=== PATIENT | female | born 1965 | race American Indian/Alaskan Native ===

== ENCOUNTER 2016-11-10 08:54 | Outpatient (CLI) | payer BC ==
--- NOTE | 2016-11-10 10:22 | Mammography Report ---
Screening mammogram: The patient had this exam on the above date . It was indicated to us that previous films should be available that would be helpful in providing optimal evaluation with regards to the current study. A final report will be issued, pending receipt of the prior study. CAD was not captured. BI-RADS CATEGORY: 0 = Needs additional imaging evaluation ACR BI-RADS MAMMOGRAPHIC CODES: 0 = Needs additional imaging evaluation; 1 = Negative; 2 = Benign; 3 = Probably benign; 4 = Suspicious; 5 = Malignant; 6 = Known biopsy-proven malignancy COMMENT: 1. Dense breast tissue, i.e., adenosis, fibrocystic changes, etc., may obscure an underlying neoplasm. 2. Approximately 10% of cancers are not detected with mammography. 3. A negative mammography report should not delay biopsy if a clinically suspicious mass is present.
== END 2016-11-10 08:55 | disposition home or self-care (01) ==
LOC: MAMMO 08:54
DX: Z12.31 Encounter for screening mammogram for malignant neoplasm of breast (principal)
CPT/HCPCS: 77067; G0202

== ENCOUNTER 2017-11-22 09:25 | Outpatient (CLI) | payer BC ==
--- NOTE | 2017-11-23 08:52 | Mammography Report ---
BILATERAL DIGITAL SCREENING MAMMOGRAM with CAD and DIGITAL BREAST TOMOSYNTHESIS (DBT) 11/22/17 CLINICAL: Routine screening. COMPARISON:11/10/16 FINDINGS: The breasts are mostly fatty with a few scattered bilateral fibroglandular densities.Bilateral low-density circumscribed nodules, cysts or lymph nodes are not significantly changed compared to the prior exam. No new mass, architectural distortion or suspicious calcifications. IMPRESSION: No mammographic evidence of malignancy. BI-RADS CATEGORY: 2 - - Benign RECOMMENDATION: Routine mammographic screening in one year. We will request comparison studies from [facility]. COMMENT: Patient follow-up letters are generated by our [employer] application.
== END 2017-11-22 09:26 | disposition home or self-care (01) ==
LOC: US 09:25
PROVIDERS: ATTEND Physician Assistant Medical
DX: Z12.31 Encounter for screening mammogram for malignant neoplasm of breast (principal)
CPT/HCPCS: 77063; 77067

== ENCOUNTER 2019-12-05 09:51 | Emergency (ER) | payer BC ==
[2019-12-05] MEDS ORDERED: SODIUM CHLORIDE 0.9% 1000 ML IV SOLN IV ONE (10:34)
[2019-12-05] MEDS ORDERED: SODIUM CHLORIDE 0.9% 1000 ML 1,000 ML ONE (10:36)
[2019-12-05 10:59] LABS: Basophils % (Auto) 0.5 % (0.0-1.8); Eosinophils % (Auto) 0.5 % (0.0-4.3); Hematocrit 39.2 % (30.3-42.9); Hemoglobin 13.1 gm/dl (10.1-14.3); Lymphocytes # (Auto) 0.5 K/mm3 (1.2-5.4); Lymphocytes % (Auto) 10.5 % (13.4-35.0); Mean Corpuscular HGB Conc 33 % (30-34); Mean Corpuscular Volume 86 fl (79-97); Monocytes # (Auto) 0.6 K/mm3 (0.0-0.8); Monocytes % (Auto) 13.9 % (0.0-7.3); Platelet Count 218 K/mm3 (140-440); Red Blood Count 4.58 M/mm3 (3.65-5.03); Red Cell Distribution Width 15.1 % (13.2-15.2)
[2019-12-05 11:11] LABS: Bilirubin,Urine NEG (Negative); Blood,Urine NEG (Negative); Color,Urine Yellow (Yellow); Protein,Urine <15 mg/dL mg/dL (Negative); Urobilinogen,Urine < 2.0 mg/dL (<2.0); WBC,Urine < 1.0 /HPF (0.0-6.0)
--- NOTE | 2019-12-05 11:20 | XRay Report ---
CHEST 2 VIEWS / XR chest routine 2V INDICATION / CLINICAL INFORMATION: Chest Pain. COMPARISON: None FINDINGS: PA and lateral chest radiographs demonstrate normal cardiomediastinal silhouette. Clear xavier gs without pleural effusions or CHF. Intact bones. IMPRESSION: No acute chest process, as described. Thank you for the opportunity to participate in this patient's care. Signer Name: Caty Sofia Signed: 12/05/2019 11:16 AM Workstation Name: [id number]
[2019-12-05 11:23] LABS: Alanine Aminotransferase 48 units/L (7-56); Albumin 4.1 g/dL (3.9-5); BUN/Creatinine Ratio 13; Blood Urea Nitrogen 10 mg/dL (7-17); Calcium 9.6 mg/dL (8.4-10.2); Hemolysis Index 6
--- NOTE | 2019-12-05 11:48 | Emergency Department Report ---
ED Fever HPI - General Chief Complaint: Fever Stated Complaint: FEVER Time Seen by Provider: 12/05/19 10:32 Source: patient - History of Present Illness Initial Comments: 54-year-old female past medical history of hypertension and diabetes presents emergency department complaining of a few day history of fever associated with a productive cough with green yellow blood tinged sputum. She was seen by her primary care provider about 5 days ago and has suspicion for UTI and was not taking medications that she did not experience any symptoms until 2 days this past Sunday. The symptoms also associated with a cough, right-sided chest pain that radiated to her back a headache and malaise and nausea. She reports no rashes. Fever Severity/Quality: greater than 100.5 F (at home) Associated Symptoms: chest pain, cough, headache, nausea/vomiting. denies: diaphoresis, stiff neck, syncope ED Review of Systems ROS: Stated complaint: FEVER Other details as noted in HPI Comment: All other systems reviewed and negative ED Past Medical Hx - Past Medical History Previous Medical History?: Yes Additional medical history: bronchitis - Social History Smoking Status: Never Smoker - Medications Home Medications: Home Medications Medication Instructions Recorded Confirmed Last Taken Type Ketorolac [Toradol] 10 mg PO Q6H PRN #14 tablet 12/05/19 Unknown Rx guaiFENesin/CODEINE [Robitussin AC] 5 ml PO Q4HR PRN #120 oral.liqd 12/05/19 Unknown Rx ED Physical Exam - General Limitations: No Limitations General appearance: alert, in no apparent distress - Head Head exam: Present: atraumatic, normocephalic - Eye Eye exam: Present: normal appearance, PERRL, EOMI Pupils: Present: normal accommodation - ENT ENT exam: Present: normal exam, normal orophraynx, mucous membranes moist, TM's normal bilaterally - Neck Neck exam: Present: normal inspection, full ROM - Respiratory Respiratory exam: Present: normal lung sounds bilaterally. Absent: respiratory distress, wheezes, rales, rhonchi, chest wall tenderness, accessory muscle use - Cardiovascular Cardiovascular Exam: Present: regular rate, normal rhythm. Absent: systolic murmur, diastolic murmur, rubs, gallop - GI/Abdominal GI/Abdominal exam: Present: soft, normal bowel sounds - Extremities Exam Extremities exam: Present: normal inspection, full ROM, normal capillary refill - Back Exam Back exam: Present: normal inspection. Absent: CVA tenderness (R), CVA tenderness (L) - Neurological Exam Neurological exam: Present: alert, oriented X3, CN II-XII intact, normal gait - Psychiatric Psychiatric exam: Present: normal affect, normal mood. Absent: anxious, flat affect - Skin Skin exam: Present: warm, dry, intact, normal color. Absent: rash, cyanosis, diaphoretic, erythema ED Course Vital Signs 12/05/19 12/05/19 12/05/19 10:30 12:17 13:01 Temperature 99.8 F H 100.2 F H Pulse Rate 119 H 107 H Respiratory 22 18 19 Rate Blood Pressure 150/82 120/71 [Right] O2 Sat by Pulse 96 98 Oximetry 12/05/19 13:02 Temperature Pulse Rate Respiratory 16 Rate Blood Pressure [Right] O2 Sat by Pulse 98 Oximetry ED Medical Decision Making - Lab Data Result diagrams: 12/05/19 10:48 12/05/19 10:48 - EKG Data EKG shows normal: sinus rhythm Rate: tachycardia - EKG Data Interpretation: normal EKG - Radiology Data Radiology results: report reviewed [facility] [address] [place] [address] XRay Report Signed Patient: ABIMBOLA LARA MR#: [id number] : 1965 Acct:[id number] Age/Sex: 54 / F ADM Date: 12/05/19 Loc: ED Attending Dr: Ordering Physician: PHUC PEDERSEN Date of Service: 12/05/19 Procedure(s): XR chest routine 2V Accession Number(s): [id number] cc: PHUC PEDERSEN Fluoro Time In Minutes: CHEST 2 VIEWS / XR chest routine 2V INDICATION / CLINICAL INFORMATION: Chest Pain. COMPARISON: None FINDINGS: PA and lateral chest radiographs demonstrate normal cardiomediastinal silhouette. Clear lungs without pleural effusions or CHF. Intact bones. IMPRESSION: No acute chest process, as described. Thank you for the opportunity to participate in this patient's care. Signer Name: Shun Patterson Signed: 12/05/2019 11:16 AM Workstation Name: [id number] Transcribed By: RS Dictated By: SHUN PATTERSON MD Electronically Authenticated By: SHUN PATTERSON MD Signed Date/Time: 12/05/19 1116 DD/ 1115 - Medical Decision Making 54-year-old female presenting to the emergency department with coryza + fever, cough, sore throat, malaise consistent with viral illness such as Influenza. Patient Not , from SNF, chronically ill or immunosuppressed. Given History and Exam I have a lower suspicion for: Emergent CardioPulmonary causes [such as Acute Asthma or COPD Exacerbation, acute Heart Failure or exacerbation, PE, PTX, atypical ACS, PNA]. Emergent Otolaryngeal causes [such as RIVET TESTER, RPA, Ludwigs, Epiglottitis, EBV]. Emergent Travel or Immunosuppressive related infectious causes[such as acute HIV, SARS, MERS]. Laboratory findings were essentially benign in the form of blood and urinalysis. Also chest x-ray was noncontributory she responds to the antipyretics well and IV fluids heart rate and temperature improving. Rx: Given patient symptomatic greater than 48hrs will instruct on conservative self-care and techniques to reduce spread for this suspected transient and self- resolving illness. Disposition: Discharge with strict return precautions. Follow up with primary care provider within 24 hours Critical care attestation.: If time is entered above; I have spent that time in minutes in the direct care of this critically ill patient, excluding procedure time. ED Disposition Clinical Impression: Viral syndrome, Fever Disposition: DC-01 TO HOME OR SELFCARE Is pt being admited?: No Does the pt Need Aspirin: No Condition: Stable Instructions: Fever in Adults (ED), Viral Syndrome (ED) Prescriptions: guaiFENesin/CODEINE [Robitussin AC] 5 ml PO Q4HR PRN #120 oral.liqd PRN Reason: Cough Ketorolac [Toradol] 10 mg PO Q6H PRN #14 tablet PRN Reason: Pain Referrals: MARY SAWYER MD [Primary Care Provider] - 2-3 Days Forms: Work/School Release Form(ED)
[2019-12-05] MEDS ORDERED: KETOROLAC 30 MG/1 ML INJ IV STA (12:09)
[2019-12-05] MEDS ORDERED: KETOROLAC 30 MG/1 ML INJ ONE (12:11)
[2019-12-05] MEDS ORDERED: ACETAMINOPHEN 500 MG TAB PO ONE (13:01)
[2019-12-05] MEDS ORDERED: ACETAMINOPHEN 500 MG TAB ONE (13:01)
[2019-12-05 13:02] VITALS: BP 120/71
== END 2019-12-05 14:38 | disposition home or self-care (01) ==
LOC: ED 09:51
DX: R11.2 Nausea with vomiting, unspecified (principal); B34.9 Viral infection, unspecified
CPT/HCPCS: 36415; 71046; 80053; 81001; 82140; 84484; 85025; 87040; 93005; 93010; 96374; 99284; J1885; J7030

== ENCOUNTER 2020-08-25 11:20 | Outpatient (CLI) | payer BC ==
[2020-08-25 12:04] LABS: Bilirubin,Urine NEG (Negative); Blood,Urine NEG (Negative); Color,Urine Yellow (Yellow); Mucus,Urine FEW /HPF; Protein,Urine <15 mg/dL mg/dL (Negative); Urobilinogen,Urine < 2.0 mg/dL (<2.0); WBC,Urine < 1.0 /HPF (0.0-6.0)
[2020-08-25 12:17] LABS: Basophils % (Auto) 0.5 % (0.0-1.8); Eosinophils % (Auto) 0.8 % (0.0-4.3); Hematocrit 41.2 % (30.3-42.9); Hemoglobin 13.5 gm/dl (10.1-14.3); Lymphocytes # (Auto) 1.9 K/mm3 (1.2-5.4); Lymphocytes % (Auto) 50.5 % (13.4-35.0); Mean Corpuscular HGB Conc 33 % (30-34); Mean Corpuscular Volume 86 fl (79-97); Monocytes # (Auto) 0.4 K/mm3 (0.0-0.8); Platelet Count 286 K/mm3 (140-440); Red Blood Count 4.78 M/mm3 (3.65-5.03); Red Cell Distribution Width 15.4 % (13.2-15.2)
[2020-08-25 12:39] LABS: Alanine Aminotransferase 60 units/L (7-56); Albumin 4.5 g/dL (3.9-5); BUN/Creatinine Ratio 19; Blood Urea Nitrogen 15 mg/dL (7-17); Calcium 10.5 mg/dL (8.4-10.2); Chol/HDL Ratio 2.23 %; HDL Cholesterol 69 mg/dL (40-59); Hemolysis Index 2; LDL Cholesterol,Direct 82 mg/dL (50-130)
--- NOTE | 2020-08-25 14:40 | Mammography Report ---
BILATERAL DIGITAL SCREENING MAMMOGRAM WITH CAD HISTORY: SCREENING MAMMO TECHNIQUE: Routine digital mammographic imaging performed. This examination was interpreted with cj ramsey benefit of Computer-aided Detection analysis. COMPARISON: 07/24/2019, 11/20/2017, 11/10/2016, 05/05/2015. FINDINGS: Breast Density: scattered fibroglandular appearance of the breast tissue. Digital CC and MLO views demonstrate no mammographic evidence of malignancy. A few circumscribed ova l and round lesions within the right central and lateral breast appear not significantly changed. Andreas g-term stability would support a benign etiology. IMPRESSION: No mammographic evidence of malignancy. If the clinical examination remains stable, recommend bilate ral mammogram in approximately one year. BIRADS 2: Benign Finding(s). FURTHER INFORMATION: According to the [employer], yearly mammograms are recommend ed starting at age 40 and continuing as long as a woman is in good health. Clinical Breast Exams shou ld be part of a periodic health exam-about every 3 years for women in their 20s and 30s and every yea r for women 40 and over. Breast self exam is an option for women starting in their 20s. Any breast ch tracey noted on a breast self exam should be reported promptly to the patient's healthcare provider. Br east MRI is recommended for women with an approximately 20-25% or greater lifetime risk of breast can cer, including women with a strong family history of breast or ovarian cancer and women who have been treated for Hodgkin's disease. A negative Mammography report should not discourage follow up or biopsy of a clinically significant f inding and/or abnormality. Dense breast tissue may obscure small neoplasms. The patient will be entered into a reminder system with a target due date for the next screening mamm ogram. Signer Name: Que Nicolas MD Signed: 08/25/2020 2:35 PM Workstation Name: [id number]
== END 2020-08-25 11:21 | disposition home or self-care (01) ==
LOC: MAMMO 11:20
PROVIDERS: ATTEND Internal Medicine
DX: Z12.31 Encounter for screening mammogram for malignant neoplasm of breast (principal); E11.9 Type 2 diabetes mellitus without complications; N39.0 Urinary tract infection, site not specified; N64.89 Other specified disorders of breast; Z00.00 Encounter for general adult medical examination without abnormal findings; Z13.29 Encounter for screening for other suspected endocrine disorder; Z13.220 Encounter for screening for lipoid disorders; Z13.21 Encounter for screening for nutritional disorder
CPT/HCPCS: 36415; 77067; 80053; 80061; 81001; 82306; 82607; 83036; 84443; 85025

== ENCOUNTER 2020-11-16 07:56 | Day surgery (SDC) | payer BC ==
[2020-11-16] MEDS ORDERED: WATER FOR IRRIG STERILE 1,000 ML BOTTLE ONE (08:25)
--- NOTE | 2020-11-16 08:33 | Anesthesia Day of Surgery ---
Anesthesia Day of Surgery - Day of Surgery Patient Examined: Yes Patient H&P Reviewed: Yes Patient is NPO: Yes
--- NOTE | 2020-11-16 08:33 | Anesthesia Consultation ---
Anesthesia Consult and Med Hx Date of service: 11/16/20 - Airway Anesthetic Teeth Evaluation: Good ROM Head & Neck: Adequate Mental/Hyoid Distance: Adequate Mallampati Class: Class III Intubation Access Assessment: Possibly Difficult - Pre-Operative Health Status ASA Pre-Surgery Classification: ASA3 Proposed Anesthetic Plan: MAC - Pulmonary Hx Sleep Apnea: Yes (reports snoring) - Cardiovascular System Hx Hypertension: Yes - Endocrine Hx Non-Insulin Dependent Diabetes: Yes - Other Systems Hx Obesity: Yes
[2020-11-16] MEDS ORDERED: SODIUM CHLORIDE 0.9% 1000 ML 1,000 ML IV SCH (09:00)
[2020-11-16] MEDS ORDERED: propofoL 200 MG/20 ML VIAL IV ONE (10:18)
--- NOTE | 2020-11-16 10:50 | Short Stay Summary ---
Short Stay Documentation Date of service: 11/16/20 Narrative H&P: The patient presents for her first screening colonoscopy, average risk profile. - History Past Medical History: diabetes, hypertension Past Surgical History: hysterectomy Social history: no significant social history - Allergies and Medications Current Medications: Allergies No Known Allergies Allergy (Unverified 11/10/16 08:55) Home Medications Medication Instructions Recorded Confirmed Last Taken Type Losartan-Hctz 100-25 mg Tab 100 mg PO DAILY 11/16/20 11/16/20 11/15/20 20:00 History metFORMIN 500 mg PO BID 11/16/20 11/16/20 11/15/20 20:00 History Active Medications Sodium Chloride (Nacl 0.9% 1000 Ml) 1,000 mls @ 75 mls/hr IV DIRECT MIGUEL ÁNGEL Last Admin: 11/16/20 08:50 Dose: 75 mls/hr Documented by: - Physical exam General appearance: no acute distress, well-nourished Integumentary: no rash, no growths, no abnormal pigmentation HEENT: Atraumatic, PERRLA, EOMI, Mucous membr. moist/pink Lungs: Clear to auscultation, Normal air movement Breasts: deferred Heart: Regular rate, Normal S1, Normal S2, No murmurs Gastrointestinal: normoactive bowel sounds, no tenderness, no distended, no masses, no guarding Female Genitourinary: deferred Rectal Exam: normal exam-external/orifice, normal rectal tone, no mass Extremities: no ischemia, pulses intact, pulses symmetrical, No edema, normal temperature, normal color, Full ROM Neurological: Normal gait, Normal speech, Strength at 5/5 X4 ext, Normal tone, Sensation intact, Cranial nerves 3-12 NL - Brief post op/procedure progress note Date of procedure: 11/16/20 Findings: see dictation Estimated blood loss: none Pathology: none Condition: stable - Disposition Condition at discharge: Good Disposition: DC-01 TO HOME OR SELFCARE - Discharge Diagnoses (1) Colon cancer screening Status: Acute Short Stay Discharge Plan Follow up with: EVELIN GABRIEL MD [Primary Care Provider] - 7 Days
--- NOTE | 2020-11-16 10:51 | Operative Report ---
Operative Report Operative Report: Date of procedure: 11/16/2020 Preprocedure diagnosis: Colon cancer screening, average risk. No prior studies. Post procedure diagnosis: Normal study Procedure: Colonoscopy to the cecum Endoscopist: Dr. Rubio Anesthesia: Monitored anesthesia care per anesthesia department Estimated blood loss: 0 Medications: Monitored anesthesia care. See separate report by anesthesia for details. After careful discussion of the nature and purpose of the procedure as well as details of the technique risks benefits and alternatives the patient gave consent. Please see recent history and physical from the office. The patient was placed in the left lateral decubitus position and medicated per anesthesia. A rectal exam was performed sphincter tone was normal there were no masses palpable. The [email or web address] 570 scope was passed transanally and advanced under continuous direct vision without difficulty to the cecum. The colon was well prepared. The cecum was normal. The ascending colon was normal and on forward and retroflexed views. The transverse colon, descending colon, and sigmoid colon were normal. The rectum was normal on forward and retroflexed views. The procedure was well-tolerated overall and the patient was observed in recovery. Conclusions: Normal colonoscopy to the cecum. Plan: Repeat colonoscopy in 10 years, sooner if clinically indicated. Signed electronically: Julio Rubio M.D.
[2020-11-16 11:14] VITALS: BP 130/74
--- NOTE | 2020-11-16 16:18 | Post Anesthesia Evaluation ---
- Post Anesthesia Evaluation Patient Participated: Yes Airway Patent: Yes Stable Respiratory Function: Yes Nausea/Vomiting: No Temp > 96.8F: Yes Pain Manageable: Yes Adequeate Hydration: Yes Anesthesia Complications: No Block Receding Appropriately: Not Applicable Patient on Ventilator: No
== END 2020-11-16 11:30 | disposition home or self-care (01) ==
LOC: GIO 07:56
PROVIDERS: ATTEND Internal Medicine Gastroenterology
DX: Z12.11 Encounter for screening for malignant neoplasm of colon (principal); I10 Essential (primary) hypertension; G47.30 Sleep apnea, unspecified; E11.9 Type 2 diabetes mellitus without complications; E66.9 Obesity, unspecified; Z68.36 Body mass index [BMI] 36.0-36.9, adult; Z79.84 Long term (current) use of oral hypoglycemic drugs; Z79.899 Other long term (current) drug therapy
CPT/HCPCS: 45378; 82962; J2704; J7030

== ENCOUNTER 2020-12-03 10:23 | Outpatient (CLI) | payer BC ==
[2020-12-03 11:18] LABS: Alanine Aminotransferase 39 units/L (7-56); Albumin 4.1 g/dL (3.9-5); Chol/HDL Ratio 2.09 %; HDL Cholesterol 66 mg/dL (40-59); LDL Cholesterol,Direct 78 mg/dL (50-130)
[2020-12-03 11:22] LABS: Bilirubin,Direct < 0.2 mg/dL (0-0.2)
[2020-12-03 11:29] LABS: Hepatitis B Surface Antigen Non-Reactive (Negative); Hepatitis C Virus Antibody Non-Reactive (NonReactive)
== END 2020-12-03 10:24 | disposition home or self-care (01) ==
LOC: LAB 10:23
PROVIDERS: ATTEND Internal Medicine
DX: Z13.220 Encounter for screening for lipoid disorders (principal); E11.9 Type 2 diabetes mellitus without complications; Z13.29 Encounter for screening for other suspected endocrine disorder; R94.5 Abnormal results of liver function studies
CPT/HCPCS: 36415; 80061; 80074; 80076; 83036

== ENCOUNTER 2021-02-24 11:09 | Outpatient (CLI) | payer BC ==
--- NOTE | 2021-02-24 12:41 | Ultrasound Report ---
Renal ultrasound INDICATION: Flank pain FINDINGS: Right kidney measures 12.3 centers in left kidney 10.6 image. Possible dual collecting syst em on the right. Echogenic focus in left kidney could represent nonobstructing stone. This measures 5 mm. No hydronephrosis. Bladder appears normal. IMPRESSION: 1. Echogenic focus may represent nonobstructing stone left kidney. Possible dual collecting system on the right. No hydronephrosis. Signer Name: Chinmay Lacy MD Signed: 02/24/2021 12:37 PM Workstation Name: [id number]
== END 2021-02-24 11:10 | disposition home or self-care (01) ==
LOC: US 11:09
PROVIDERS: ATTEND Internal Medicine
DX: N13.39 Other hydronephrosis (principal)
CPT/HCPCS: 76770

== ENCOUNTER 2021-04-29 09:23 | Outpatient (CLI) | payer BC ==
[2021-04-29 10:22] LABS: BUN/Creatinine Ratio 18; Blood Urea Nitrogen 14 mg/dL (7-17); Calcium 9.3 mg/dL (8.4-10.2); Hemolysis Index 7
[2021-05-02 12:37] LABS: Vitamin D, 25-OH, D2 7 ng/mL
== END 2021-04-29 09:24 | disposition home or self-care (01) ==
LOC: LAB 09:23
PROVIDERS: ATTEND Internal Medicine
DX: E11.9 Type 2 diabetes mellitus without complications (principal); E55.9 Vitamin D deficiency, unspecified; R94.5 Abnormal results of liver function studies
CPT/HCPCS: 36415; 80048; 82306; 83036

== ENCOUNTER 2021-09-05 12:33 | Outpatient (CLI) | payer BC ==
--- NOTE | 2021-09-06 17:05 | Mammography Report ---
DIGITAL SCREENING MAMMOGRAM WITH CAD, 09/05/2021 CLINICAL INFORMATION / INDICATION: Routine screening mammography. TECHNIQUE: Digital bilateral 2D mammography was obtained in the craniocaudal and mediolateral obliqu e projections. This examination was interpreted with the benefit of Computer-Aided Detection analysis . COMPARISON: 08/25/2020, 07/24/2019, 11/22/2017 FINDINGS: Breast Density: There are scattered areas of fibroglandular density. No dominant mass, suspicious calcifications, or architectural distortion in either breast. Minimal circumscribed right breast nodularity is again noted and appears unchanged. IMPRESSION: No mammographic evidence of malignancy. Follow up recommendation: Routine yearly BI-RADS Category 2: Benign. A "normal" or negative report should not discourage follow up or biopsy of a clinically significant f inding. A written summary of these findings will be mailed to the patient. The patient will be entered into a mammography reporting system which will generate a reminder letter for the patient's next appointmen t at the appropriate interval. The [employer] recommends yearly mammograms starting at age 40 and continuing as l ariana as a woman is in good health. Breast MRI is recommended for women with an approximate 20-25% or greater lifetime risk of breast cancer, including women with a strong family history of breast or ova kavitha cancer or who have been treated for Hodgkin's disease. Signer Name: Eva Cunha MD Signed: 09/06/2021 5:01 PM Workstation Name: [email or web address]
== END 2021-09-05 12:34 | disposition home or self-care (01) ==
LOC: MAMMO 12:33
PROVIDERS: ATTEND Internal Medicine
DX: Z12.31 Encounter for screening mammogram for malignant neoplasm of breast (principal); N64.89 Other specified disorders of breast
CPT/HCPCS: 77067

== ENCOUNTER 2021-09-14 08:13 | Outpatient (CLI) | payer BC ==
[2021-09-14 08:42] LABS: Basophils % (Auto) 0.8 % (0.0-1.8); Eosinophils # (Auto) 0.1 K/mm3 (0.0-0.4); Eosinophils % (Auto) 1.4 % (0.0-4.3); Hematocrit 39.6 % (30.3-42.9); Hemoglobin 12.8 gm/dl (10.1-14.3); Lymphocytes % (Auto) 49.2 % (13.4-35.0); Mean Corpuscular HGB Conc 32 % (30-34); Mean Corpuscular Volume 86 fl (79-97); Monocytes # (Auto) 0.4 K/mm3 (0.0-0.8); Monocytes % (Auto) 10.3 % (0.0-7.3); Platelet Count 250 K/mm3 (140-440); Red Blood Count 4.62 M/mm3 (3.65-5.03); Red Cell Distribution Width 15.9 % (13.2-15.2)
[2021-09-14 09:06] LABS: Alanine Aminotransferase 36 units/L (7-56); Albumin 4.1 g/dL (3.9-5); BUN/Creatinine Ratio 19; Blood Urea Nitrogen 15 mg/dL (7-17); Chol/HDL Ratio 2.29 %; HDL Cholesterol 65 mg/dL (40-59); Hemolysis Index 23; LDL Cholesterol,Direct 71 mg/dL (50-130)
[2021-09-14 15:06] LABS: Creatinine,Urine 223.5 mg/dL (0.1-20.0); Microalbumin/Creatinine Ratio 8.9 ug/mg
[2021-09-17 14:33] LABS: Vitamin D, 25-OH, D2 6 ng/mL
== END 2021-09-14 08:14 | disposition home or self-care (01) ==
LOC: LAB 08:13
PROVIDERS: ATTEND Internal Medicine
DX: Z00.00 Encounter for general adult medical examination without abnormal findings (principal); E11.9 Type 2 diabetes mellitus without complications; E66.09 Other obesity due to excess calories; I10 Essential (primary) hypertension; Z13.29 Encounter for screening for other suspected endocrine disorder; E55.9 Vitamin D deficiency, unspecified
CPT/HCPCS: 36415; 80053; 80061; 82043; 82306; 83036; 84443; 85025

== ENCOUNTER 2022-01-31 08:23 | Outpatient (CLI) | payer BC | END 2022-01-31 08:24 | disposition home or self-care (01) | LOC: LAB 08:23 | PROVIDERS: ATTEND Internal Medicine | DX: E11.9 Type 2 diabetes mellitus without complications (principal) | CPT/HCPCS: 36415; 83036 ==

== ENCOUNTER 2022-06-22 10:34 | Outpatient (CLI) | payer BC | END 2022-06-22 10:35 | disposition home or self-care (01) | LOC: LAB 10:34 | PROVIDERS: ATTEND Internal Medicine | DX: E11.9 Type 2 diabetes mellitus without complications (principal) | CPT/HCPCS: 36415; 83036 ==